=== PATIENT | female | born 1945 | race Caucasian/White ===

== ENCOUNTER 2021-03-31 02:14 | Outpatient (CLI) | payer MEDICARE, SELFPAY ==
[2021-03-31 13:00] LABS: Source Nasal/Nares
[2021-03-31 21:08] LABS: COVID-19 PCR Negative (Negative)
== END 2021-03-31 02:15 | disposition home or self-care (01) ==
PROVIDERS: PCP Family Medicine; Visit Provider Ophthalmology
DX: Z20.822 Contact with and (suspected) exposure to COVID-19 (principal); Z01.818 Encounter for other preprocedural examination
CPT/HCPCS: 87635

== ENCOUNTER 2021-04-02 08:58 | Day surgery (SDC) | payer MEDICARE, OTHER, SELFPAY ==
[2021-04-02] MEDS: Tropicam./Phenyleph. (1/2.5%) 5 ML BTL OD ×3 (09:22→09:42)
[2021-04-02 09:29] VITALS: BP 159/67; PULSE 75; RESP 16; TEMP 36.4; O2SAT 97
--- NOTE | 2021-04-02 10:08 | ANES.PREOP_ITS ---
General Info Date of Service Date Performed: 04/02/21 Height: 5 ft 1 in Weight: 76 kg Body Mass Index (BMI): 31.6 Surgical Procedure: Operation Date: 04/02/21 11:40 Proposed Procedures Side Surgeon p Intraocular Stent Placement/IOL Implant Right Joao Muñoz MD Meds Allergies and Home Medications Allergies Allergy/AdvReac Type Severity Reaction Status Date / Time aspirin Allergy Intermediate Skin Rash Unverified 04/02/21 09:24 oxybutynin AdvReac Intermediate Dizziness Unverified 04/02/21 09:24 and dry mouth Home Medication Medication Instructions Recorded brimonidine-timolol 1 drp OPHTHALMIC (EYE) Q12H 03/31/21 cholecalciferol (vitamin D3) 125 mcg PO DAILY 03/31/21 [Vitamin D3] cholestyramine (with sugar) 4 pwd PO BID 03/31/21 hydrochlorothiazide 50 mg PO DAILY 03/31/21 lovastatin 20 mg PO DAILY 03/31/21 sertraline 100 mg PO DAILY 04/02/21 Current Visit Medications: Current Medications Generic Name Dose Route Start Last Admin Trade Name Freq PRN Reason Stop Dose Admin Acetaminophen 1,000 mg 04/02/21 06:00 Acetaminophen 500 Mg Tab PO Q4H PRN PRN Miscellaneous Medication 0 ml 04/02/21 06:00 Prednisolone 1%, Moxifloxacin 0.5%, Nepafenac 0.1% 5ml Btl OD DIRECTED [facility] Miscellaneous Medication 0 ml 04/02/21 06:00 04/02/21 09:42 Tropicam./Phenyleph. (1/2.5%) 5 Ml Btl OD 1 drp DIRECTED PRANAV Administration Tetracaine HCl 0 ml 04/02/21 06:00 Tetracaine 0.5% 4 Ml Btl OD DIRECTED [facility] PFSH Active Problems Active Problems: Problem Status Onset Code Nuclear sclerotic cataract of right eye H25.11 Medical History Medical History Anxiety Depression Diarrhea History of colonic polyps Hypercholesteremia Primary hypertension Rash Urge incontinence Surgical History Surgical History (Updated 04/02/21 @ 09:24 by Funmi Mcgovern) History of thumb surgery Hx of colonoscopy Hx of tubal ligation Status post cholecystectomy Tobacco Smoking/Tobacco Use Status: Never Alcohol Alcohol Intake: current Alcohol intake frequency: a few times a month Substance Use Substance use: Never Substance use type: does not use Vital Signs and Lab Results Vital Signs Most Recent Vital Signs in EMR: Most Recent Vital Signs Temp Pulse Resp BP Pulse Ox 36.4 C L 75 16 159/67 H 97 04/02/21 09:29 04/02/21 09:29 04/02/21 09:29 04/02/21 09:29 04/02/21 09:29 Lab Results Blood Type / Crossmatch: No Data to Display Complete Blood Count: No Data to Display Complete Metabolic Panel: No Data to Display Liver Function Panel: No Data to Display Coagulation Panel: No Data to Display Cardiac Panel: No Data to Display Arterial Blood Gas: No Data to Display Venous Blood Gas: No Data to Display Pancreas Panel: No Data to Display Thyroid Panel: No Data to Display Infectious Disease: Coronavirus (COVID-19)(PCR) Negative (Negative) 03/31/21 10:36 03/31/21 Coronavirus 2019 Source Nasal/Nares 03/31/21 10:36 03/31/21 Blood Cultures: No Data to Display Toxicology Panel: No Data to Display Anesthesia Assessment and Plan Anesthesia History Personal History: No History of Anesthesia Complications Family History: No Family History of Anesthesia Complications Exercise Tolerance Exercise Tolerance: Metabolic Equivalents>4 Pertinent Negatives Pertinent Negatives: No Symptoms of GERD, No Major Cardiovascular Symptoms or Complaints and No Major Pulmonary Symptoms or Complaints Cardiac & Pulmonary Exam Cardiac Exam: Normal S1/S2 Heart Sounds Pulmonary Exam: Clear Bilateral Breath Sounds Airway Exam Known Difficult Airway: No Mallampati Class: 2 Mouth Opening: Normal (> 3cm) Thyromental Distance: Greater than 3 cm Neck Range of Motion: Full ROM Neck Circumference: Normal Teeth Condition: Normal Dentition ASA Classification ASA Score: ASA 2 Emergency Case?: No NPO Status NPO Status: NPO Clears >2 hours, Solids >8 hours Anesthesia Plan Resuscitation Status: Full Code Anesthesia Technique: MAC Anesthesia Airway Planned: Natural Airway Pain Management: Surgeon and patient request nerve block Monitors Used: Standard Monitors
[2021-04-02 10:33] VITALS: BMI 31.6
[2021-04-02] MEDS: Balanced Salt Soln.-PLUS 500 ML BAG (10:48)
[2021-04-02] MEDS: Duovisc Viscoelastic System EACH 1 EACH (10:48)
[2021-04-02] MEDS: Lidocaine 1% Pres-Free 5 ML VIAL (10:49)
[2021-04-02] MEDS: Lidocaine 2% Jelly 6 ML SYR (10:49)
[2021-04-02] MEDS: Povidone-Iodine Ophth 30 ML BTL (10:51)
[2021-04-02] MEDS: Tetracaine 0.5% 4 ML BTL OD (11:15)
[2021-04-02 11:18] VITALS: BP 117/48; PULSE 63; RESP 16; TEMP 36.7; O2SAT 95
--- NOTE | 2021-04-02 11:23 | W.PM.DSUDISC ---
Discharge Plan Disposition Patient Disposition: HOME Condition: Good Discharge Details Attending Provider: Joao Muñoz Primary Care Provider: Raven Lan Home Meds and New Rx's Prescriptions: No Action hydrochlorothiazide 50 mg Tablet 50 mg PO DAILY RF: 0 lovastatin 20 mg Tablet 20 mg PO DAILY RF: 0 cholestyramine (with sugar) 4 gram Powder 4 pwd PO BID RF: 0 brimonidine-timolol 0.2-0.5 % Drops 1 drp ophthalmic (eye) Q12H RF: 0 cholecalciferol (vitamin D3) [Vitamin D3] 125 mcg (5,000 unit) Tablet 125 mcg PO DAILY RF: 0 sertraline 100 mg tablet 100 mg PO DAILY RF: 0 Discharge Instructions Stand Alone Forms: Post-op Topical Cataract, Milena Mc ([facility]) Discharge Orders Discharge Orders: Discharge Order (Routine); Ordered 04/02/21 Ordered By: Joao Muñoz DS: Diagnosis Discharge Diagnosis (1) Nuclear sclerotic cataract of right eye: Status: Resolved (2) Primary open-angle glaucoma, right eye, moderate stage: Status: Chronic
--- NOTE | 2021-04-02 11:25 | ROE_ITS ---
Date of service: 04/02/21 Time of Service: 11:25 Operative Note Operative Note DATE OF PROCEDURE: 04/02/21 PRE-OP DIAGNOSIS: Nuclear cataract, right eye Primary open-angle glaucoma, right eye, moderate stage POST-OP DIAGNOSIS: same PROCEDURE: 1. Cataract extraction using phacoemulsification with intraocular lens implant, right eye 2. Insertion of multiple anterior segment aqueous drainage devices (Glaukos iStent inject x 2) into trabecular meshwork, right eye SURGEON: Joao Muñoz ANESTHESIA TYPE: Local By Surgeon and MAC Refer to Anesthesia Record PATHOLOGY: none sent COMPLICATIONS: None Patient was transported to: same day Patient's condition: stable Implants: 1. [employer] / [employer] Tecnis [id number] intraocular lens 2. Glaukos iStent inject trabecular micro-bypass stent x 2 Indications: 1. Progressive decreased vision due to cataract, right eye 2. Primary open angle glaucoma, right eye Procedure Description: CATARACT SURGERY OPERATIVE REPORT PREOPERATIVE DIAGNOSIS: Nuclear cataract, right eye Primary open-angle glaucoma, right eye, moderate stage POSTOPERATIVE DIAGNOSIS: Same OPERATION: 1. Cataract extraction using phacoemulsification with posterior chamber intraocular lens implant, right eye. 2. Insertion of multiple anterior segment aqueous drainage devices (Glaukos iStent inject x 2) into trabecular meshwork, right eye IOL: IOL Drapery Rod Assembler/Model: [employer] / MASSIMO Tecnis ZCB00 IOL Power: + 19.0 diopters IOL Serial Number: [id number] Optic Diameter: 6.0mm Haptic/Overall Diameter: 13.0mm PHACO INFO: Sd [employer] Vision System with OZil and Active Fluidics Cumulative Dispersed Energy (CDE): 3.60 seconds TRABECULAR MICRO-BYPASS STENT INFO: Glaukos iStent inject x 2 Reference Number: [id number] Serial Number: [id number] SURGEON: Joao Muñoz MD, LORIN ANESTHESIA: Monitored Anesthesia Care (MAC), with local sub-tenon's anesthetic infiltration COMPLICATIONS: None SPECIMENS: None INDICATIONS FOR PROCEDURE: The patient is a 75-year-old lady with history of moderate stage primary open- angle glaucoma who has developed a significant nuclear cataract in the right eye. Cataract surgery is undertaken in attempt to improve and maximize her vision. A glaucoma stent will be placed in attempt to better control her intraocular pressure and reduce dependency on topical medications. She has previously had myopic LASIK in both eyes. The option of cataract surgery was offered to the patient and she wished to proceed. PROCEDURE: The correct surgical eye was identified and marked as the right eye and the pupil was dilated in the preoperative area using mydriatics and cycloplegics. The dilated pupil size was 8.0 mm. She elected to proceed without oral sedation. The patient was brought to the operating room where cardiopulmonary monitoring was instituted and surgical time-out was performed, confirming the correct operative eye and IOL power. Topical anesthesia was administered and ophthalmic povidone-iodine 5% was instilled into the conjunctival fornices. Lidocaine gel was applied to the cornea and the dom-ocular area was prepped with Betadine 10% solution and draped in the usual sterile fashion for intraocular surgery, including an aperture drape. A Tegaderm transparent film dressing was cut in half and used to cover the lashes and lid margins. Care was taken to sequester the lashes and lid margins under the Tegaderm dressing. A lid speculum was placed between the lids of the operative eye and the Babar-Shelley operating microscope was maneuvered into position. Blanco scissors were then used to make a conjunctival buttonhole approximately 6mm posterior to the limbus in the inferonasal quadrant. Blunt dissection was carried out to expose bare sclera, and a blunt-tipped sub-tenon?s anesthesia cannula was introduced and passed posteriorly along the globe where non- preserved plain lidocaine was injected into posterior sub-Tenon?s space. A sideport knife was used to make a paracentesis port inferiortemporally. Intraocular phenylephrine/lidocaine was injected into the anterior chamber. The anterior chamber was then filled with viscoelastic. A 2.4mm keratome knife was used to create a half-thickness groove at the limbus and then to construct a three-plane near-clear corneal tunnel extending 2.0mm into clear cornea in the superiortemporal position. . A flap was raised on the anterior capsule and capsulorhexis forceps were used to complete a continuous curvilinear capsulor hexis of 5.5 mm. Balanced salt solution was then used to perform cortical cleaving hydrodissection and nuclear hydrodelineation until the lens could be freely rotated within the capsular bag. The lens nucleus was then disassembled and removed within the capsular bag and iris plane using phacoemulsification. Residual cortical material was removed using the 45-degree angled silicone I/A tip with 0.3mm port. The posterior capsule was carefully polished to remove as much residual lens epithelial cells as safely possible. The capsular bag was then inflated and the anterior chamber deepened with viscoelastic. The lens implant described above was inserted into the capsular bag using the MASSIMO [place] Injector. A Kuglen hook was used to dial the IOL into position. The anterior chamber was then slightly over-filled with viscoelastic. The microsope and the patient's head were tilted into the ideal position for viewing of the anterior chamber angle. Viscoelastic was placed on the cornea f ollowed by a surgical gonionlens, and the anterior chamber angle landmarks were identified. The [employer] iStent inject handpiece was introduced into the anterior chamber and the insertion sleeve was retracted once the injector was distal to the pupillary margin. The trocar was advanced through the central portion of the trabecular meshwork and into the back wall of Schlemm's canal in the inferonasal quadrant, with care taken to ensure the micro-insertion tube was perpendicular to the trabecular meshwork. The trabecular meshwork was lightly dimpled and the stent was injected without difficulty. A moderate amount of hemorrhage was present through the stent aperture. The hemorrhage was cleared with viscoelastic, confirming good position of the stent. The same procedure was then performed about 1 clock hour superior to the first stent, where there was evidence of blood reflux and Schlemm's canal.. Both stents were then examined and noted to be in good position within the trabecular meshwork. The microscope and the patients head were returned to the normal coaxial position. Viscoelatic was then removed from the anterior chamber using the I/A handpiece. The lens implant was noted to center nicely within the capsular bag. The incisions were stromally hydrated, and the anterior chamber was reformed using BSS. Then 0.4cc of moxifloxacin 1.5mg/ml were injected into the capsular bag and anterior chamber. The incisions were checked with a Weck spear and found to be secure. Several drops of ophthalmic povidone-iodine 5% were then applied to the eye followed by two drops of Imprimis combination prednisolone/moxifloxacin/nepafenac solution. The drapes were removed and a clear plastic protective eye shield was placed over the eye. The patient was then returned to Same Day Surgery in stable condition.
--- NOTE | 2021-04-02 11:34 | W.ANESPOSTOP ---
Postoperative Evaluation Date, Time and Location Date Performed: 04/02/21 Time Performed: 11:25 Patient Location: Day Surgery Unit Vital Signs Most Recent Imported Vital Signs: Most Recent Vital Signs Temp Pulse Resp BP Pulse Ox 36.7 C 63 16 117/48 L 95 04/02/21 11:18 04/02/21 11:18 04/02/21 11:18 04/02/21 11:18 04/02/21 11:18 Pain Score Most Recent Pain Score: Most Recent Pain Score Pain Level 0 04/02/21 11:18 Assessment Mental Status: Awake (Alert & Oriented to Patient Baseline) Airway and Respiratory Function: Patent airway with normal (patient baseline) respiratory exam Cardiovascular Function: Hemodynamically Stable Hydration Status: Adequately Hydrated Nausea & Vomiting: No Nausea or Vomiting Pain: Pt. Denies Any Pain Peripheral Nerve Block: Patient did not receive a nerve block
== END 2021-04-02 11:39 | disposition home or self-care (01) ==
PROVIDERS: PCP Family Medicine; Visit Provider Ophthalmology
PROC: (CPT 66984; principal; 2021-04-02 11:30)
DX: H25.11 Age-related nuclear cataract, right eye (principal); H40.1112 Primary open-angle glaucoma, right eye, moderate stage
CPT/HCPCS: 66984; 0191T; V2632; C1783

== ENCOUNTER 2021-04-14 02:06 | Outpatient (CLI) | payer MEDICARE, OTHER, SELFPAY ==
[2021-04-14 10:17] LABS: Source Nasal/Nares
[2021-04-14 13:53] LABS: COVID-19 PCR Negative (Negative)
== END 2021-04-14 02:07 | disposition home or self-care (01) ==
LOC: LBO 02:09
PROVIDERS: PCP Family Medicine; Visit Provider Ophthalmology
DX: Z20.822 Contact with and (suspected) exposure to COVID-19 (principal); Z01.818 Encounter for other preprocedural examination
CPT/HCPCS: 87635

== ENCOUNTER 2021-04-16 08:04 | Day surgery (SDC) | payer MEDICARE, OTHER, SELFPAY ==
[2021-04-16 08:45] VITALS: BP 166/53; PULSE 78; RESP 16; TEMP 36.6; O2SAT 97
[2021-04-16] MEDS: Tropicam./Phenyleph. (1/2.5%) 5 ML BTL OS ×3 (08:51→09:03)
--- NOTE | 2021-04-16 09:29 | W.ANESPRE ---
General Info Date of Service Date Performed: 04/16/21 Height: 5 ft 1 in Weight: 76.6 kg Body Mass Index (BMI): 31.8 Surgical Procedure: Operation Date: 04/16/21 10:40 Proposed Procedures Side Surgeon p Cataract Extraction with IOL Implant Left Joao Muñoz MD Meds Allergies and Home Medications Allergies Allergy/AdvReac Type Severity Reaction Status Date / Time aspirin Allergy Intermediate Skin Rash Unverified 04/16/21 08:38 oxybutynin AdvReac Intermediate Dizziness Unverified 04/16/21 08:38 and dry mouth Home Medication Medication Instructions Recorded brimonidine-timolol 1 drp OPHTHALMIC (EYE) Q12H 03/31/21 cholecalciferol (vitamin D3) 125 mcg PO DAILY 03/31/21 [Vitamin D3] cholestyramine (with sugar) 4 pwd PO BID 03/31/21 hydrochlorothiazide 50 mg PO DAILY 03/31/21 lovastatin 20 mg PO DAILY 03/31/21 sertraline 100 mg PO DAILY 04/02/21 Current Visit Medications: Current Medications Generic Name Dose Route Start Last Admin Trade Name Freq PRN Reason Stop Dose Admin Acetaminophen 1,000 mg 04/16/21 06:00 Acetaminophen 500 Mg Tab PO Q4H PRN PRN Miscellaneous Medication 0 ml 04/16/21 06:00 Prednisolone 1%, Moxifloxacin 0.5%, Nepafenac 0.1% 5ml Btl OS DIRECTED PRANAV Miscellaneous Medication 0 ml 04/16/21 06:00 04/16/21 09:03 Tropicam./Phenyleph. (1/2.5%) 5 Ml Btl OS 1 drp DIRECTED PRANAV Administration Tetracaine HCl 0 ml 04/16/21 06:00 Tetracaine 0.5% 4 Ml Btl OS DIRECTED PRANAV PFSH Active Problems Active Problems: Problem Status Onset Code Nuclear sclerotic cataract of left eye H25.12 Primary open-angle glaucoma, right eye, moderate stage H40.1112 Nuclear sclerotic cataract of right eye H25.11 Medical History Medical History Anxiety Depression Diarrhea History of colonic polyps Hypercholesteremia Primary hypertension Rash Urge incontinence Surgical History Surgical History History of thumb surgery Hx of colonoscopy Hx of tubal ligation Status post cholecystectomy Tobacco Smoking/Tobacco Use Status: Never Alcohol Alcohol Intake: current Alcohol intake frequency: a few times a month Substance Use Substance use: Never Substance use type: does not use Vital Signs and Lab Results Vital Signs Most Recent Vital Signs in EMR: Most Recent Vital Signs Temp Pulse Resp BP Pulse Ox 36.6 C 78 16 166/53 H 97 04/16/21 08:45 04/16/21 08:45 04/16/21 08:45 04/16/21 08:45 04/16/21 08:45 Lab Results Blood Type / Crossmatch: No Data to Display Complete Blood Count: No Data to Display Complete Metabolic Panel: No Data to Display Liver Function Panel: No Data to Display Coagulation Panel: No Data to Display Cardiac Panel: No Data to Display Arterial Blood Gas: No Data to Display Venous Blood Gas: No Data to Display Pancreas Panel: No Data to Display Thyroid Panel: No Data to Display Infectious Disease: Coronavirus (COVID-19)(PCR) Negative (Negative) 04/14/21 09:11 04/14/21 Coronavirus 2019 Source Nasal/Nares 04/14/21 09:11 04/14/21 Blood Cultures: No Data to Display Toxicology Panel: No Data to Display Anesthesia Assessment and Plan Anesthesia History Personal History: No History of Anesthesia Complications Family History: No Family History of Anesthesia Complications Exercise Tolerance Exercise Tolerance: Metabolic Equivalents>4 Cardiac & Pulmonary Exam Cardiac Exam: Normal S1/S2 Heart Sounds Pulmonary Exam: Clear Bilateral Breath Sounds Airway Exam Known Difficult Airway: No Mallampati Class: 2 Mouth Opening: Normal (> 3cm) Thyromental Distance: Greater than 3 cm Neck Range of Motion: Full ROM Neck Circumference: Normal Teeth Condition: Normal Dentition ASA Classification ASA Score: ASA 2 Emergency Case?: No NPO Status NPO Status: NPO Clears >2 hours, Solids >8 hours Anesthesia Plan Resuscitation Status: Full Code Anesthesia Technique: MAC Anesthesia Airway Planned: Natural Airway Monitors Used: Standard Monitors
[2021-04-16 09:30] VITALS: BMI 31.8
[2021-04-16] MEDS: Tetracaine 0.5% 4 ML BTL OS (10:10)
[2021-04-16] MEDS: Balanced Salt Soln.-PLUS 500 ML BAG (10:12)
[2021-04-16] MEDS: Duovisc Viscoelastic System EACH 1 EACH (10:13)
[2021-04-16] MEDS: Lidocaine 1% Pres-Free 5 ML VIAL (10:13)
[2021-04-16] MEDS: Lidocaine 2% Jelly 6 ML SYR (10:14)
[2021-04-16] MEDS: Povidone-Iodine Ophth 30 ML BTL (10:15)
--- NOTE | 2021-04-16 10:39 | W.PM.DSUDISC ---
Discharge Plan Disposition Patient Disposition: HOME Condition: Good Discharge Details Attending Provider: Joao Muñoz Primary Care Provider: Raven Lan Home Meds and New Rx's Prescriptions: No Action hydrochlorothiazide 50 mg Tablet 50 mg PO DAILY RF: 0 lovastatin 20 mg Tablet 20 mg PO DAILY RF: 0 cholestyramine (with sugar) 4 gram Powder 4 pwd PO BID RF: 0 brimonidine-timolol 0.2-0.5 % Drops 1 drp ophthalmic (eye) Q12H RF: 0 cholecalciferol (vitamin D3) [Vitamin D3] 125 mcg (5,000 unit) Tablet 125 mcg PO DAILY RF: 0 sertraline 100 mg tablet 100 mg PO DAILY RF: 0 Discharge Instructions Stand Alone Forms: Post-op Topical Cataract, Milena Mc ([facility]) Discharge Orders Discharge Orders: Discharge Order (Routine); Ordered 04/16/21 Ordered By: Joao Muñoz DS: Diagnosis Discharge Diagnosis (1) Nuclear sclerotic cataract of left eye: Status: Resolved (2) Primary open-angle glaucoma, left eye, moderate stage: Status: Chronic
[2021-04-16 10:40] VITALS: BP 150/58; PULSE 72; RESP 18; TEMP 36.5; O2SAT 96
--- NOTE | 2021-04-16 10:42 | ROE_ITS ---
Date of service: 04/16/21 Time of Service: 10:42 Operative Note Operative Note DATE OF PROCEDURE: 04/16/21 PRE-OP DIAGNOSIS: Nuclear cataract, left eye, symptomatic Primary open-angle glaucoma, left eye, moderate stage PROCEDURE: 1. Cataract extraction using phacoemulsification with intraocular lens implant, left eye 2. Insertion of anterior segment aqueous drainage devices (Glaukos iStent inj ect x 1) into trabecular meshwork, left eye SURGEON: Joao Muñoz ANESTHESIA TYPE: Local By Surgeon and MAC Refer to Anesthesia Record ESTIMATED BLOOD LOSS: 0 PATHOLOGY: none sent COMPLICATIONS: None Patient was transported to: same day Patient's condition: stable Implants: 1. [employer] / [employer] Tecnis ZCB00 intraocular lens 2. Glaukos iStent inject trabecular micro-bypass stent x 1 Indications: 1. Progressive decreased vision due to cataract, left eye 2. Primary open angle glaucoma, left eye Procedure Description: CATARACT SURGERY OPERATIVE REPORT PREOPERATIVE DIAGNOSIS: Nuclear cataract, left eye Primary open-angle glaucoma, left eye, moderate stage POSTOPERATIVE DIAGNOSIS: Same OPERATION: 1. Cataract extraction using phacoemulsification with posterior chamber intraocular lens implant, left eye. 2. Insertion of anterior segment aqueous drainage devices (Glaukos iStent inject x 1) into trabecular meshwork, left eye IOL: IOL Glass Installer Technician/Model: [employer] / MASSIMO Tecnis ZCB00 IOL Power: +21.0 diopters IOL Serial Number: [id number] Optic Diameter: 6.0mm Haptic/Overall Diameter: 13.0mm PHACO INFO: Sd [employer] Vision System with OZil and Active [employer]uidics Cumulative Dispersed Energy (CDE): 7.12 seconds TRABECULAR MICRO-BYPASS STENT INFO: Glaukos iStent inject x 1 Reference Number: [id number] Serial Number: [id number] SURGEON: Joao Muñoz MD, LORIN ANESTHESIA: Monitored Anesthesia Care (MAC), with local sub-tenon's anesthetic infiltration COMPLICATIONS: None SPECIMENS: None INDICATIONS FOR PROCEDURE: The patient is a 75-year-old lady with history of myopia who has previously undergone myopic LASIK. She has very thin central corneas. She also has primary open-angle glaucoma of both eyes, moderate stage. She has developed symptomatic bilateral nuclear cataract. She has already undergone cataract surgery in the right eye 2 weeks ago and is doing well postoperatively, with implant of a glaucoma stent. She now presents for cataract surgery of the left eye with implantation of microtrabecular bypass stent to improve her intraocular pressure control and reduce dependency on topical medications. PROCEDURE: The correct surgical eye was identified and marked as the left eye and the pupil was dilated in the preoperative area using mydriatics and cycloplegics. The dilated pupil size was 7.0 mm. She elected to proceed without oral sedation. The patient was brought to the operating room where cardiopulmonary monitoring was instituted and surgical time-out was performed, confirming the correct operative eye and IOL power. Topical anesthesia was administered and ophthalmic povidone-iodine 5% was instilled into the conjunctival fornices. Lidocaine gel was applied to the cornea and the dom-ocular area was prepped with Betadine 10% solution and draped in the usual sterile fashion for intraocular surgery, including an aperture drape. A Tegaderm transparent film dressing was cut in half and used to cover the lashes and lid margins. Care was taken to sequester the lashes and lid margins under the Tegaderm dressing. A lid speculum was placed between the lids of the operative eye and the Babar-Shelley operating microscope was maneuvered into position. Blanco scissors were then used to make a conjunctival buttonhole approximately 6mm posterior to the limbus in the inferonasal quadrant. Blunt dissection was carried out to expose bare sclera, and a blunt-tipped sub-tenon?s anesthesia cannula was introduced and passed posteriorly along the globe where non- preserved plain lidocaine was injected into posterior sub-Tenon?s space. A sideport knife was used to make a paracentesis port superior/superiortemporally. Intraocular phenylephrine/lidocaine was injected into the anterior chamber. The anterior chamber was then filled with viscoelastic. A 2.4mm keratome knife was used to create a half-thickness groove at the limbus and then to construct a three-plane near-clear corneal tunnel extending 2.0mm into clear cornea in the temporal position. . A flap was raised on the anterior capsule and capsulorhexis forceps were used to complete a continuous curvilinear capsulorhexis of 5.5 mm. Balanced salt solution was then used to perform cortical cleaving hydrodissection and nuclear hydrodelineation until the lens could be freely rotated within the capsular bag. The lens nucleus was then disassembled and removed within the capsular bag and iris plane using phacoemulsification. Residual cortical material was removed using the 45-degree angled silicone I/A tip with 0.3mm port. The posterior capsule was carefully polished to remove as much residual lens epithelial cells as safely possible. The capsular bag was then inflated and the anterior chamber deepened with viscoelastic. The lens implant described above was inserted into the capsular bag using the MASSIMO Minto Injector. A Kuglen hook was used to dial the IOL into position. The anterior chamber was then slightly over-filled with viscoelastic. The microsope and the patient's head were tilted into the ideal position for viewing of the anterior chamber angle. Viscoelastic was placed on the cornea followed by a surgical gonionlens, and the anterior chamber angle landmarks were identified. The [employer] iStent inject handpiece was introduced into the anterior chamber and the insertion sleeve was retracted once the injector was distal to the pupillary margin. The trocar was advanced through the central portion of the trabecular meshwork and into the back wall of Schlemm's canal in the superiornasal quadrant, with care taken to ensure the micro-insertion tube was perpendicular to the trabecular meshwork. The trabecular meshwork was lightly dimpled and the stent was injected without difficulty. The same procedure was then performed in the inferiornasal quradrant. However, the stent failed to deploy despite 3 attempts. The injector was removed from the eye, but the stent remained in the angle, not embedded in the trabecular meshwork. The I/A handpiece was introduced and used to engage the stent and remove it from the eye. The microscope and the patients head were returned to the normal coaxial position. Viscoelatic was then removed from the anterior chamber using the I/A handpiece. The lens implant was noted to center nicely within the capsular bag. The incisions were stromally hydrated, and the anterior chamber was reformed using BSS. Then 0.5cc of moxifloxacin 1.0mg/ml were injected into the capsular bag and anterior chamber. The incisions were checked with a Weck spear and found to be secure. Several drops of ophthalmic povidone-iodine 5% were then applied to the eye followed by two drops of Imprimis combination prednisolone/moxifloxacin/nepafenac solution. The drapes were removed and a clear plastic protective eye shield was placed over the eye. The patient was then returned to Same Day Surgery in stable condition.
--- NOTE | 2021-04-16 11:06 | W.ANESPOSTOP ---
Postoperative Evaluation Date, Time and Location Date Performed: 04/16/21 Time Performed: 10:46 Patient Location: Day Surgery Unit Vital Signs Most Recent Imported Vital Signs: Most Recent Vital Signs Temp Pulse Resp BP Pulse Ox 36.5 C 72 18 150/58 H 96 04/16/21 10:40 04/16/21 10:40 04/16/21 10:40 04/16/21 10:40 04/16/21 10:40 Pain Score Most Recent Pain Score: Most Recent Pain Score Pain Level 0 04/16/21 10:40 Assessment Mental Status: Awake (Alert & Oriented to Patient Baseline) Airway and Respiratory Function: Patent airway with normal (patient baseline) respiratory exam Cardiovascular Function: Hemodynamically Stable Hydration Status: Adequately Hydrated Nausea & Vomiting: No Nausea or Vomiting Pain: Pt. Denies Any Pain Peripheral Nerve Block: Patient did not receive a nerve block
== END 2021-04-16 11:01 | disposition home or self-care (01) ==
PROVIDERS: PCP Family Medicine; Visit Provider Ophthalmology
PROC: (CPT 66984; principal; 2021-04-16 10:30)
DX: H25.12 Age-related nuclear cataract, left eye (principal); H40.1122 Primary open-angle glaucoma, left eye, moderate stage; I10 Essential (primary) hypertension; E78.00 Pure hypercholesterolemia, unspecified; R41.9 Unspecified symptoms and signs involving cognitive functions and awareness
CPT/HCPCS: 66984; 0191T; V2632; C1783